=== PATIENT | female | born 1965 | race Caucasian/White ===

== ENCOUNTER 2020-04-21 13:56 | Outpatient (REF) | payer MEDICAID, OTHER, SELFPAY | END 2020-04-21 13:57 | disposition home or self-care (01) | LOC: HO.LAB 13:56 | PROVIDERS: Visit Provider Internal Medicine | DX: Z20.822 Contact with and (suspected) exposure to COVID-19 (principal) | CPT/HCPCS: 36415; C9803; U0003 ==

== ENCOUNTER 2020-12-02 13:54 | Outpatient (REF) | payer MEDICAID, OTHER, SELFPAY ==
--- NOTE | ~2020-12-02 | US_ITS ---
EXAMINATION: MM DIAGNOSTIC DIGITAL BREAST TOMOSYNTHESIS, BILATERAL US DIAGNOSTIC ULTRASOUND BREAST, LEFT CLINICAL INFORMATION: Due for yearly. Also follow-up probable benign grouped fine fibrocystic changes upper outer right breast. The lifetime risk of breast cancer based on the Tyrer-Cuzick Model is 7%. COMPARISON: Mammography: 03/29/2019, 09/25/2018, 03/27/2018, 03/16/2018 (BI-RADS 0), 03/07/2017, 02/22/2016. Targeted right breast ultrasound 03/27/2018, 09/25/2018, 03/29/2019. TECHNIQUE: Digital breast tomosynthesis is performed in both the craniocaudal and mediolateral oblique views along with computer-aided detection (CAD). Synthesized 2D images are generated from the tomosynthesis. Ultrasound right breast is targeted to the upper outer quadrant. Grayscale imaging and color Doppler are performed without and with harmonics. FINDINGS: The breasts are heterogeneously dense, which may obscure small masses (ACR BI-RADS breast composition Category c). The parenchymal pattern is similar to prior exams. The grouped nodularity mid upper outer right breast is similar to prior diagnostic studies and in retrospect likely unchanged since 2016. There is no developing density or interval architectural abnormality. The left breast again shows circumscribed nodule mid upper outer quadrant. There are no abnormal calcifications. The axilla and skin contours are unremarkable. Ultrasound right breast demonstrates small grouped hypoechoic nodularity stable from prior studies. No increasing nodularity or architectural changes. No associated color flow. Results are discussed with the patient at time of visit, using an senior director creative services. The right breast nodularity for follow-up has remained stable and is now considered to be benign. US/US breast RT limited IMPRESSION: There are no significant changes from prior studies. Targeted right breast ultrasound stable. ASSESSMENT: BI-RADS 2: Benign RECOMMENDATION: Routine annual mammography screening. This patient's information was entered into a reminder system with a target due date for their next mammogram.
== END 2020-12-02 13:55 | disposition home or self-care (01) ==
LOC: HO.MAMMO 13:54
DX: R92.8 Other abnormal and inconclusive findings on diagnostic imaging of breast (principal); I10 Essential (primary) hypertension
CPT/HCPCS: 76642; 77062; 77066